=== PATIENT | female | born 1970 | race Hispanic/Latino ===

== ENCOUNTER 2017-10-25 11:10 | Outpatient (CLI) | payer BC ==
--- NOTE | 2017-10-25 14:47 | Ultrasound Report ---
ULTRASOUND PELVIC COMPLETE ULTRASOUND TRANSVAGINAL HISTORY: Pelvic pain, perineal pain. COMPARISON: None at this facility. TECHNIQUE: Transabdominal and transvaginal ultrasound with color doppler interrogation. FINDINGS: Uterus: The uterus is anteverted. The uterus measures 7.3 x 3.1 x 5.2 cm. 4 relatively small uterine fibroids are identified. A 1.7 cm intramural fibroid is identified in the anterior wall. A 2.1 cm fibroid is identified in the uterine fundus which may have a small submucosal component. A 2.4 cm exophytic fibroid is identified from the uterine fundus. A 1.3 cm exophytic fibroid is identified from the posterior wall. The cervix is unremarkable. Endometrium: 5 mm. No mass or fluid collection. Right ovary: 5.4 x 2.0 x 1.4 cm. 2 or possibly 3 right ovarian cysts are identified with the largest measuring 2.4 cm. Left ovary: 3.7 x 2.3 x 3.0 cm. A 1.7 cm left ovarian cyst is identified. No pelvic fluid or mass is identified. Normal color doppler interrogation. IMPRESSION: Uterine fibroid disease as outlined above. Bilateral ovarian cysts, simple in appearance.
== END 2017-10-25 11:11 | disposition home or self-care (01) ==
LOC: US 11:10
PROVIDERS: ATTEND Obstetrics & Gynecology Gynecology
DX: D25.1 Intramural leiomyoma of uterus (principal); D25.2 Subserosal leiomyoma of uterus; N83.202 Unspecified ovarian cyst, left side; N83.201 Unspecified ovarian cyst, right side
CPT/HCPCS: 76830; 76856

== ENCOUNTER 2020-06-17 13:54 | Observation (INO) | payer BC, OTHER ==
[2020-06-17 15:58] LABS: Basophils # (Auto) 0.1 K/mm3 (0.0-0.1); Basophils % (Auto) 0.9 % (0.0-1.8); Eosinophils % (Auto) 0.1 % (0.0-4.3); Hematocrit 44.4 % (30.3-42.9); Hemoglobin 15.1 gm/dl (10.1-14.3); Lymphocytes # (Auto) 2.4 K/mm3 (1.2-5.4); Lymphocytes % (Auto) 17.6 % (13.4-35.0); Mean Corpuscular HGB Conc 34 % (30-34); Mean Corpuscular Volume 99 fl (79-97); Monocytes # (Auto) 0.9 K/mm3 (0.0-0.8); Monocytes % (Auto) 6.7 % (0.0-7.3); Platelet Count 364 K/mm3 (140-440); Red Blood Count 4.51 M/mm3 (3.65-5.03); Red Cell Distribution Width 13.9 % (13.2-15.2)
[2020-06-17 16:14] LABS: Alanine Aminotransferase 15 units/L (7-56); BUN/Creatinine Ratio 8; Blood Urea Nitrogen 6 mg/dL (7-17); Calcium 9.5 mg/dL (8.4-10.2); Hemolysis Index 9
--- NOTE | 2020-06-17 16:31 | XRay Report ---
CHEST 2 VIEWS INDICATION / CLINICAL INFORMATION: Chest Pain. COMPARISON: None available. FINDINGS: SUPPORT DEVICES: None. HEART / MEDIASTINUM: No significant abnormality. LUNGS / PLEURA: No significant pulmonary or pleural abnormality. No pneumothorax. ADDITIONAL FINDINGS: No significant additional findings. IMPRESSION: 1. No acute findings. Signer Name: Jonathan King MD Signed: 06/17/2020 4:26 PM Workstation Name: [id number]
[2020-06-17] MEDS ORDERED: KETOROLAC 30 MG/1 ML INJ IM ONE (21:10)
[2020-06-17] MEDS ORDERED: dexAMETHasone 20 MG/5 ML VIAL IM ONE (21:10)
--- NOTE | 2020-06-17 23:17 | Emergency Department Report ---
ED Chest Pain HPI - General Chief Complaint: Chest Pain Stated Complaint: CHEST PAIN Source: patient Mode of arrival: Ambulatory Limitations: No Limitations - History of Present Illness Initial Comments: Patient is a 50-year-old white female with a history of chronic psoriatic ar thritis and psoriasis, and heavy tobacco smoker who presents to the ED with complaint of acute onset persistent left-sided chest pain that radiates diffusely and to the right arm for the last 2 weeks. Patient describes the pain as pressure-like but gets worse with any cough or exertion. Patient also complains of persistent intermittent dry cough and shortness of breath for the last 1 week which appeared to worsen her chest pain. Patient was referred to the ED by her primary care physician for further evaluation and possible admission for chest pain work-up. Patient denies diaphoresis, nausea, vomiting, diarrhea, abdominal pain, headache, dizziness, syncope, change in vision, back pain, heavy lifting, fall, traumatic injury, fever and chills. MD Complaint: chest pain (Left-sided chest pain that radiates diffusely and to the right arm), other (Right arm pain, shortness of breath) -: Gradual, week(s) (2) Onset: during rest, awoke with symptoms Pain Location: left chest, right chest Pain Radiation: RUE Severity: severe Severity scale (0 -10): 6 Quality: aching, sharp Consistency: constant Improves With: nothing Worsens With: exertion, movement re: dyspnea. denies: nausea, vomting, diaphoresis, sense of impending doom Other Symptoms: denies: cough, fever, syncope, rash, acid taste in mouth, leg swelling, burping Treatments Prior to Arrival: none - Related Data On Oral Contraceptives: No Allergies Allergy/AdvReac Type Severity Reaction Status Date / Time No Known Allergies Allergy Unverified 10/14/15 13:51 Heart Score - HEART Score History: Slightly suspicious EKG: Normal Age: 45-65 Risk factors: 1-2 risk factors Troponin: < normal limit HEART Score: 2 - Critical Actions Critical Actions: 0-3 pts:0.9-1.7%risk of adverse cardiac event.Candidate for discharge ED Review of Systems ROS: Stated complaint: CHEST PAIN Other details as noted in HPI Constitutional: denies: chills, fever Eyes: denies: eye pain, eye discharge, vision change ENT: denies: ear pain, throat pain Respiratory: cough, shortness of breath. denies: wheezing Cardiovascular: chest pain. denies: palpitations Endocrine: no symptoms reported Gastrointestinal: denies: abdominal pain, nausea, vomiting, diarrhea Genitourinary: denies: urgency, dysuria, discharge Musculoskeletal: denies: back pain, joint swelling, arthralgia Skin: denies: rash, lesions Neurological: denies: headache, weakness, paresthesias Psychiatric: denies: anxiety, depression Hematological/Lymphatic: denies: easy bleeding, easy bruising ED Past Medical Hx - Past Medical History Previous Medical History?: Yes Additional medical history: Psoriatic arthritis. psoriasis ED Physical Exam - General Limitations: No Limitations General appearance: alert, in no apparent distress - Head Head exam: Present: atraumatic, normocephalic, normal inspection - Eye Eye exam: Present: normal appearance, PERRL, EOMI Pupils: Present: normal accommodation - ENT ENT exam: Present: normal exam, normal orophraynx, mucous membranes moist, TM's normal bilaterally, normal external ear exam - Neck Neck exam: Present: normal inspection, full ROM - Respiratory Respiratory exam: Present: normal lung sounds bilaterally, chest wall tenderness (Palpable reproducible diffuse chest wall tenderness). Absent: respiratory distress, wheezes, rales, rhonchi, accessory muscle use, decreased breath sounds - Cardiovascular Cardiovascular Exam: Present: normal rhythm, tachycardia, normal heart sounds. Absent: systolic murmur, diastolic murmur, rubs, gallop - GI/Abdominal GI/Abdominal exam: Present: soft, normal bowel sounds. Absent: tenderness, guarding, rebound, hyperactive bowel sounds, hypoactive bowel sounds, organomegaly - Extremities Exam Extremities exam: Present: normal inspection, full ROM, normal capillary refill - Back Exam Back exam: Present: normal inspection, full ROM. Absent: tenderness, CVA tenderness (R), CVA tenderness (L), muscle spasm, paraspinal tenderness, vertebral tenderness - Neurological Exam Neurological exam: Present: alert, oriented X3, CN II-XII intact, normal gait, reflexes normal - Psychiatric Psychiatric exam: Present: normal affect, normal mood - Skin Skin exam: Present: warm, dry, intact, normal color. Absent: rash ED Course Vital Signs 06/17/20 13:58 Temperature 98.4 F Pulse Rate 100 H Respiratory 20 Rate O2 Sat by Pulse 98 Oximetry STEVE score - Steve Score Age > 65: (0) No Aspirin use within the Past 7 Days: (0) No 3 or more CAD Risk Factors: (0) No 2 or more Angina events in past 24 hrs: (0) No Known CAD with more than 50% Stenosis: (0) No Elevated Cardiac Markers: (0) No ST Deviation Greater than 0.5mm: (0) No STEVE Score: 0 ED Medical Decision Making - Lab Data Result diagrams: 06/17/20 15:36 06/17/20 15:36 - EKG Data EKG shows normal: sinus rhythm Rate: normal - EKG Data Interpretation: normal EKG 06/17/20 23:18 The EKG shows normal sinus rhythm with a ventricular rate of [address] or T wave abnormalities. - Radiology Data Radiology results: report reviewed, image reviewed Findings [facility] [address] [place] [address] XRay Report Signed Patient: HOSEA CURRY R#: [id number] : 1970 Acct:[id number] Age/Sex: 50 / F ADM Date: 06/17/20 Loc: ED Attending Dr: Ordering Physician: RONALDO PRITCHETT Date of Service: 06/17/20 Procedure(s): XR chest routine 2V Accession Number(s): [id number] cc: RONALDO PRITCHETT Fluoro Time In Minutes: CHEST 2 VIEWS INDICATION / CLINICAL INFORMATION: Chest Pain. COMPARISON: None available. FINDINGS: SUPPORT DEVICES: None. HEART / MEDIASTINUM: No significant abnormality. LUNGS / PLEURA: No significant pulmonary or pleural abnormality. No pneumothorax. ADDITIONAL FINDINGS: No significant additional findings. IMPRESSION: 1. No acute findings. Signer Name: Jonathan Lovell MD Signed: 06/17/2020 4:26 PM Workstation Name: [id number] Transcribed By: CH Dictated By: JONATHAN LOVELL Electronically Authenticated By: JONATHAN LOVELL Signed Date/Time: 06/17/201625 DD/ 25 TD/TT: - Medical Decision Making This is a 50-year-old white female with a history of chronic psoriatic arthritis and psoriasis, and heavy tobacco smoker who presents to the ED with complaint of acute onset persistent left-sided chest pain that radiates diffusely and to the right arm for the last 2 weeks. Patient describes the pain as pressure-like but gets worse with any cough or exertion. Patient also complains of persistent intermittent dry cough and shortness of breath for the last 1 week which appeared to worsen her chest pain. Patient was referred to the ED by her primary care physician for further evaluation and possible admission for chest pain work-up. In the ED, patient is alert and oriented x3 and is not in distress with normal vital signs. EKG shows normal sinus rhythm with a ventricular rate of [address] or T wave abnormalities. Chest x-ray shows no acute cardiopulmonary abnormalities or pneumonitis. Patient was treated for pain in the ED and lab test results were reviewed and are all nonactionable including initial and repeat troponin levels. Patient's case was also discussed with the patient primary care physician Dr. Meza who suggested that he would like the patient admitted for observation and chest pain rule out. Therefore discussed the patient's case with the hospitalist physician on-call who admitted the patient to the hospital for chest pain work-up and rule out. - Differential Diagnosis ACS; pneumonia; COVID-19; COPD; anxiety; PE Critical care attestation.: If time is entered above; I have spent that time in minutes in the direct care of this critically ill patient, excluding procedure time. ED Disposition Clinical Impression: Atypical chest pain, Shortness of breath Disposition: 09 OP ADMIT IP TO THIS HOSP Is pt being admited?: Yes Does the pt Need Aspirin: Yes Condition: Stable Instructions: Chest Pain (ED) Referrals: EVELYNE MEZA MD [Primary Care Provider] - 3-5 Days Time of Disposition: 23:22 Print Language: ERITREAN
[2020-06-17] MEDS ORDERED: ASPIRIN 81 MG TAB CHEW PO ONE (23:22)
[2020-06-18 01:22] LABS: C-Reactive Protein 0.2 mg/dL (0.00-1.30)
[2020-06-18] MEDS ORDERED: ONDANSETRON 4 MG/2 ML INJ IV PRN (01:53)
[2020-06-18] MEDS ORDERED: NITROGLYCERIN 0.4 MG TAB SUBL SL PRN (01:53)
[2020-06-18] MEDS ORDERED: MORPHINE 2 MG/1 ML INJ IV PRN (01:53)
[2020-06-18] MEDS ORDERED: MAGNESIUM HYDROXIDE (MOM) ORAL LIQD UDC PO PRN (01:53)
[2020-06-18] MEDS ORDERED: ACETAMINOPHEN 325 MG TAB PO PRN ×2 (01:53)
--- NOTE | 2020-06-18 02:09 | History and Physical Report ---
History of Present Illness Date of examination: 06/17/20 Date of admission: 06/17/20 23:28 Chief complaint: Chest Pain History of present illness: 50-year-old female with known history of chronic psoriatic arthritis and psoriasis presenting in the emergency room today complaining of chest pain. Chest pain is said to be left-sided and radiates diffusely across the chest and also towards the right upper extremity. This has been ongoing for about 2 weeks and patient described pain as being pressure-like in nature. [facility] referred patient to the emergency room for further evaluation and management. Patient denies any cough, no fever or chills, no nausea vomiting, no headache or dizziness, no hematuria or dysuria. She denies any sick contacts and no recent travel, denies any contact with anyone with COVID-19. Patient is a heavy tobacco smoker. Work-up in the emergency room today did not reveal any significant abnormality. Patient is being admitted for chest pain work-up. Past History Past Medical History: other (Psoriatric arthritis) Past Surgical History: No surgical history Social history: smoking (1 Pack per day.) Family history: no significant family history Medications and Allergies Allergies Allergy/AdvReac Type Severity Reaction Status Date / Time No Known Allergies Allergy Verified 06/18/20 02:02 Active Meds: Active Medications Acetaminophen (Tylenol) 650 mg PO Q4H PRN PRN Reason: Pain MILD(1-3)/Fever >100.5/DOMINGUEZ Aspirin (Ecotrin) 325 mg PO QDAY JAIRO Magnesium Hydroxide (Milk Of Magnesia) 30 ml PO Q4H PRN PRN Reason: Constipation Morphine Sulfate (Morphine) 2 mg IV Q5MIN PRN PRN Reason: Chest Pain unrelieved by NTG Nitroglycerin (Nitrostat) 0.4 mg SL Q5M PRN PRN Reason: Chest Pain Ondansetron HCl (Zofran) 4 mg IV Q8H PRN PRN Reason: Nausea And Vomiting Sodium Chloride (Sodium Chloride Flush Syringe 10 Ml) 10 ml IV BID JAIRO Sodium Chloride (Sodium Chloride Flush Syringe 10 Ml) 10 ml IV PRN PRN PRN Reason: LINE FLUSH Review of Systems Constitutional: no fever, no chills Ears, nose, mouth and throat: no nasal congestion, no sore throat Cardiovascular: chest pain, no palpitations Respiratory: no cough, no shortness of breath Gastrointestinal: no abdominal pain, no nausea, no vomiting, no diarrhea Genitourinary Female: no pelvic pain, no flank pain, no dysuria, no hematuria Musculoskeletal: no neck pain, no low back pain Integumentary: no rash, no pruritis Neurological: no headaches, no confusion Psychiatric: no anxiety, no depression Exam - Constitutional Vitals: Temp Pulse Resp BP Pulse Ox 98.4 F 100 H 20 98 06/17/20 13:58 06/17/20 13:58 06/17/20 13:58 06/17/20 13:58 General appearance: Present: no acute distress, well-nourished - EENT Eyes: Present: PERRL, EOM intact. Absent: scleral icterus ENT: hearing intact, clear oral mucosa, dentition normal - Neck Neck: Present: supple, normal ROM - Respiratory Respiratory effort: normal - Cardiovascular Rhythm: regular Heart Sounds: Present: S1 & S2. Absent: gallop, systolic murmur, diastolic murmur, rub - Extremities Extremities: no ischemia, pulses intact, pulses symmetrical, No edema, Full ROM Peripheral Pulses: within normal limits - Abdominal General gastrointestinal: Present: soft, non-tender, non-distended, normal bowel sounds. Absent: mass - Integumentary Integumentary: Present: clear, warm, dry. Absent: rash - Musculoskeletal Musculoskeletal: strength equal bilaterally - Psychiatric Psychiatric: appropriate mood/affect, intact judgment & insight, memory intact, cooperative - Neurologic Neurologic: CNII-XII intact, no focal deficits, moves all extremities HEART Score - HEART Score History: Moderately suspicious EKG: Normal Age: 45-65 Risk factors: 1-2 risk factors Troponin: Troponin T < 0.010 ng/mL (0.00-0.029) 06/17/20 21:23 Troponin: < normal limit HEART Score: 3 - Critical Actions Critical Actions: 0-3 pts:0.9-1.7%risk of adverse cardiac event.Candidate for discharge Results - Labs CBC & Chem 7: 06/17/20 15:36 06/18/20 00:34 Labs: Abnormal lab results 06/17/20 06/17/20 06/18/20 Range/Units 15:36 15:36 00:34 WBC 13.6 H (4.5-11.0) K/mm3 Hgb 15.1 H (10.1-14.3) gm/dl Hct 44.4 H (30.3-42.9) % MCV 99 H (79-97) fl MCH 34 H (28-32) pg [place] # (Auto) 0.9 H (0.0-0.8) K/mm3 Seg Neutrophils % 74.7 H (40.0-70.0) % Seg Neutrophils # 10.1 H (1.8-7.7) K/mm3 BUN 6 L (7-17) mg/dL Glucose 101 H 118 H (65-100) mg/dL Assessment and Plan - Patient Problems (1) Atypical chest pain Current Visit: Yes Status: Acute Plan to address problem: Patient admitted and placed on telemetry. Will check serial cardiac enzymes. We will request cardiology evaluation. (2) Tobacco abuse Current Visit: Yes Status: Acute Plan to address problem: Counseled on quitting tobacco use. We will offer nicotine patch as needed. (3) DVT prophylaxis Current Visit: Yes Status: Acute Plan to address problem: Patient placed on anticoagulation with subcutaneous heparin. (4) Full code status Current Visit: Yes Status: Acute
[2020-06-18 08:46] LABS: Basophils % (Auto) 0.3 % (0.0-1.8); Hematocrit 41.5 % (30.3-42.9); Hemoglobin 14.3 gm/dl (10.1-14.3); Lymphocytes # (Auto) 0.7 K/mm3 (1.2-5.4); Lymphocytes % (Auto) 12.8 % (13.4-35.0); Mean Corpuscular HGB Conc 35 % (30-34); Mean Corpuscular Volume 100 fl (79-97); Monocytes # (Auto) 0.1 K/mm3 (0.0-0.8); Platelet Count 319 K/mm3 (140-440); Red Blood Count 4.17 M/mm3 (3.65-5.03); Red Cell Distribution Width 13.7 % (13.2-15.2)
[2020-06-18 09:12] LABS: Chol/HDL Ratio 2.41 %
--- NOTE | 2020-06-18 11:14 | Consultation ---
History of Present Illness Consult date: 06/18/20 Requesting physician: NKECHI MONTALVO Consult reason: chest pain History of present illness: The pt is a 50-year-old female with a past medical history of COPD and tobacco use. She is previously unknown to our practice. She presented with c/o chest pain for approx 2 weeks prior to arrival. Pt describes her chest pain as a left- sided pressure which radiates into her right arm. Pt was initially evaluated by her PCP and was referred to ED for further evaluation/management. She is currently COVID-19 PUI with COVID testing pending. Past History Past Medical History: other (as per HPI) Past Surgical History: No surgical history Social history: smoking (1 Pack per day.) Family history: no significant family history Medications and Allergies Allergies Allergy/AdvReac Type Severity Reaction Status Date / Time No Known Allergies Allergy Verified 06/18/20 02:02 Active Meds: Active Medications Acetaminophen (Tylenol) 650 mg PO Q4H PRN PRN Reason: Pain MILD(1-3)/Fever >100.5/DOMINGUEZ Aspirin (Ecotrin) 325 mg PO QDAY [facility] Magnesium Hydroxide (Milk Of Magnesia) 30 ml PO Q4H PRN PRN Reason: Constipation Morphine Sulfate (Morphine) 2 mg IV Q5MIN PRN PRN Reason: Chest Pain unrelieved by NTG Nitroglycerin (Nitrostat) 0.4 mg SL Q5M PRN PRN Reason: Chest Pain Ondansetron HCl (Zofran) 4 mg IV Q8H PRN PRN Reason: Nausea And Vomiting Sodium Chloride (Sodium Chloride Flush Syringe 10 Ml) 10 ml IV BID [facility] Last Admin: 06/18/20 10:25 Dose: 10 ml Documented by: Sodium Chloride (Sodium Chloride Flush Syringe 10 Ml) 10 ml IV PRN PRN PRN Reason: LINE FLUSH Review of Systems Constitutional: no weight loss, no weight gain, no fever, no chills, no sweats Ears, nose, mouth and throat: no ear pain, no nose pain, no sinus pressure, no sinus pain Cardiovascular: chest pain, shortness of breath, dyspnea on exertion, no orthopnea, no palpitations, no rapid/irregular heart beat, no edema, no syncope, no lightheadedness Respiratory: shortness of breath, dyspnea on exertion, no cough, no congestion, no wheezing, no pain on inspiration Gastrointestinal: no abdominal pain, no nausea, no vomiting, no diarrhea, no constipation, no change in bowel habits Genitourinary Female: no pelvic pain, no flank pain, no dysuria, no urinary frequency, no urgency Musculoskeletal: no neck stiffness, no neck pain, no shooting arm pain, no arm numbness/tingling, no low back pain, no shooting leg pain Integumentary: no rash, no pruritis, no redness, no sores, no wounds Neurological: no head injury, no paralysis, no weakness, no parathesias, no numbness, no tingling, no seizures, no syncope Psychiatric: no anxiety Endocrine: no cold intolerance, no heat intolerance Hematologic/Lymphatic: no easy bruising Allergic/Immunologic: no urticaria Physical Examination Vital Signs Temp Pulse Resp Pulse Ox 98.4 F 100 H 20 98 06/17/20 13:58 06/17/20 13:58 06/17/20 13:58 06/17/20 13:58 General appearance: no acute distress HEENT: Positive: PERRL, Normocephaly, Mucus Membranes Moist Neck: Positive: neck supple, trachea midline Cardiac: Positive: Reg Rate and Rhythm, S1/S2 Lungs: Positive: Decreased Breath Sounds Neuro: Positive: Grossly Intact Abdomen: Negative: Tender Skin: Negative: Rash Musculoskeletal: No Pain Extremities: Absent: edema Results 06/18/20 07:51 06/18/20 00:34 Cardiac Enzymes 06/17/20 06/18/20 Range/Units 15:36 00:34 AST 17 (5-40) units/L Lactate Dehydrogenase 132 (91-180) units/L Lipids 06/18/20 Range/Units 07:51 Triglycerides 40 (2-149) mg/dL Cholesterol 181 (50-199) mg/dL HDL Cholesterol 75 H (40-59) mg/dL Cholesterol/HDL Ratio 2.41 % CBC 06/17/20 06/18/20 Range/Units 15:36 07:51 WBC 13.6 H 5.1 (4.5-11.0) K/mm3 RBC 4.51 4.17 (3.65-5.03) M/mm3 Hgb 15.1 H 14.3 (10.1-14.3) gm/dl Hct 44.4 H 41.5 (30.3-42.9) % Plt Count 364 319 (140-440) K/mm3 Lymph # (Auto) 2.4 0.7 L (1.2-5.4) K/mm3 [place] # (Auto) 0.9 H 0.1 (0.0-0.8) K/mm3 Eos # (Auto) 0.0 0.0 (0.0-0.4) K/mm3 Baso # (Auto) 0.1 0.0 (0.0-0.1) K/mm3 Comprehensive Metabolic Panel 06/17/20 06/18/20 Range/Units 15:36 00:34 Sodium 138 (137-145) mmol/L Potassium 4.1 (3.6-5.0) mmol/L Chloride 103.2 (98-107) mmol/L Carbon Dioxide 26 (22-30) mmol/L BUN 6 L (7-17) mg/dL Creatinine 0.8 (0.6-1.2) mg/dL Glucose 101 H 118 H (65-100) mg/dL Calcium 9.5 (8.4-10.2) mg/dL AST 17 (5-40) units/L ALT 15 (7-56) units/L Alkaline Phosphatase 75 (35-129) units/L Total Protein 7.4 (6.3-8.2) g/dL Albumin 4.0 (3.9-5) g/dL - Imaging and Cardiology Echo: pending EKG: report reviewed, image reviewed EKG interpretations - Telemetry EKG Rhythm: Sinus Rhythm - EKG Sinus rhythms and dysrhythmias: sinus rhythm Assessment and Plan AMI r/o. Pending pt is COVID negative, obtain tte and plan for lexiscan MPI stress test in AM. NPO after MN. The patient has been seen in conjunction with Dr. Brumfield who agrees with the assessment and plan of care. - Patient Problems (1) Chest pain Current Visit: Yes Status: Acute (2) Person under investigation for COVID-19 Current Visit: Yes Status: Acute (3) COPD (chronic obstructive pulmonary disease) Current Visit: Yes Status: Suspected (4) Tobacco abuse Current Visit: Yes Status: Chronic
[2020-06-19 06:27] LABS: Basophils # (Auto) 0.1 K/mm3 (0.0-0.1); Basophils % (Auto) 0.5 % (0.0-1.8); Eosinophils % (Auto) 0.2 % (0.0-4.3); Hematocrit 39.2 % (30.3-42.9); Hemoglobin 13.2 gm/dl (10.1-14.3); Lymphocytes # (Auto) 3.7 K/mm3 (1.2-5.4); Lymphocytes % (Auto) 31.3 % (13.4-35.0); Mean Corpuscular HGB Conc 34 % (30-34); Mean Corpuscular Volume 100 fl (79-97); Monocytes % (Auto) 8.8 % (0.0-7.3); Platelet Count 326 K/mm3 (140-440); Red Blood Count 3.94 M/mm3 (3.65-5.03); Red Cell Distribution Width 14.1 % (13.2-15.2)
[2020-06-19 06:36] LABS: INR 1.01 (0.87-1.13)
[2020-06-19 06:55] LABS: Calcium 9.1 mg/dL (8.4-10.2)
[2020-06-19] MEDS ORDERED: REGADENOSON 0.4 MG/5 ML INJ IV ONE (08:38)
[2020-06-19] MEDS ORDERED: ASPIRIN EC 325 MG TAB PO SCH (10:00)
--- NOTE | 2020-06-19 11:14 | Progress Note ---
Assessment and Plan COVID-19 testing is negative. AMI r/o. S/p lexiscan MPI stress test today which was negative. Currently stable cardiac status. Chest pain resolved. Pt may discharge from cardiology standpoint. Recommend pt follow up in our office with Dr. Brumfield within 2 weeks ([phone]). The patient has been seen in conjunction with Dr. Brumfield who agrees with the assessment and plan of care. - Patient Problems (1) Chest pain Current Visit: Yes Status: Resolved (2) COPD (chronic obstructive pulmonary disease) Current Visit: Yes Status: Suspected (3) Tobacco abuse Current Visit: Yes Status: Chronic Subjective Date of service: 06/19/20 Principal diagnosis: cp Interval history: pt for stress test today, no current cardiac complaints. tele reviewed - in SB HR 50s. Objective Last Vital Signs Temp 98.1 F 06/19/20 03:40 Pulse 58 L 06/19/20 03:40 Resp 18 06/19/20 08:53 BP 107/60 06/19/20 08:51 Pulse Ox 99 06/19/20 03:40 - Physical Examination General: No Apparent Distress HEENT: Positive: PERRL, Normocephaly, Mucus Membranes Moist Neck: Positive: neck supple, trachea midline Cardiac: Positive: Regular Rhythm, S1/S2 Lungs: Positive: Decreased Breath Sounds Neuro: Positive: Grossly Intact Abdomen: Negative: Tender Skin: Negative: Rash Musculoskeletal: No Pain Extremities: Absent: edema - Labs and Meds Coagulation 06/19/20 Range/Units 06:04 PT 13.2 (12.2-14.9) Sec. INR 1.01 (0.87-1.13) CBC 06/19/20 Range/Units 06:04 WBC 11.7 H (4.5-11.0) K/mm3 RBC 3.94 (3.65-5.03) M/mm3 Hgb 13.2 (10.1-14.3) gm/dl Hct 39.2 (30.3-42.9) % Plt Count 326 (140-440) K/mm3 Lymph # (Auto) 3.7 (1.2-5.4) K/mm3 [place] # (Auto) 1.0 H (0.0-0.8) K/mm3 Eos # (Auto) 0.0 (0.0-0.4) K/mm3 Baso # (Auto) 0.1 (0.0-0.1) K/mm3 Comprehensive Metabolic Panel 06/19/20 Range/Units 06:04 Sodium 142 (137-145) mmol/L Potassium 3.9 (3.6-5.0) mmol/L Chloride 107.2 H (98-107) mmol/L Carbon Dioxide 25 (22-30) mmol/L BUN 11 (7-17) mg/dL Creatinine 1.0 (0.6-1.2) mg/dL Glucose 94 (65-100) mg/dL Calcium 9.1 (8.4-10.2) mg/dL - Imaging and Cardiology EKG: report reviewed, image reviewed Echo: report reviewed - Telemetry EKG Rhythm: Sinus Rhythm - EKG Sinus rhythms and dysrhythmias: sinus rhythm
--- NOTE | 2020-06-19 13:03 | Discharge Summary ---
Providers - Providers Date of Admission: 06/17/20 23:28 Attending physician: ARTEMIO TALBOT 06/18/20 Consult to Cardiac Rehabilitation [CONS] Routine Reason For Exam: Phase I 06/18/20 01:54 Consult to Cardiology [CONS] Routine Consulting Provider: JENNIFER SAENZ Reason For Exam: chest pain Primary care physician: EVELYNE MEZA Hospitalization Condition: Stable Exam - Constitutional Vitals: Temp Pulse Resp BP Pulse Ox 98.1 F 58 L 18 107/60 99 06/19/20 03:40 06/19/20 03:40 06/19/20 08:53 06/19/20 08:51 06/19/20 03:40 Plan Follow up with: EVELYNE MEZA MD [Primary Care Provider] - 3-5 Days
[2020-06-19 13:43] VITALS: BP 111/66
--- NOTE | 2020-06-19 13:45 | Treadmill Report ---
PHARMACOLOGIC MYOCARDIAL PERFUSION IMAGING REPORT The patient is a 50-year-old female who was admitted with complaints of chest pain and coughing of 2 weeks' duration. Presently, she continues to have chest pain. The patient tells me she had a stress test done 8 years ago, which was unremarkable. Presently myocardial perfusion imaging is being performed for evaluation of atypical chest pains of few weeks' duration. Baseline EKG showed sinus rhythm, within normal limits. The patient received IV regadenoson 0.4 mg by injection. Tolerated it well. EKG showed sinus rhythm within normal limits. No changes in the EKG with vasodilation. The patient had resting myocardial perfusion images using technetium 99m sestamibi agent. Subsequently, post-vasodilation the patient underwent nuclear imaging using the same agent, namely technetium 99m sestamibi with gated study being performed for evaluation of LV function post-vasodilation. Following findings were noted. The patient denied chest pain. EKG showed sinus rhythm within normal limits and no changes with vasodilation. The patient did not have any chest pain with vasodilation. Nuclear imaging showed normal perfusion post-vasodilation and also during rest. Gated studies showed ejection fraction to be 68% by calculation. End-diastolic and systolic blood volumes are normal. Transient ischemic dilation ratio was 1.01, which is normal. FINAL IMPRESSION: 1. The patient tolerated IV regadenoson well. 2. No EKG changes to suggest ischemia. 3. Normal myocardial perfusion imaging noted with normal left ventricular ejection fraction of 68% with normal wall motion and thickening. This is prognostically a low-risk study. [facility]# [id number] NINI/MATHEW
== END 2020-06-19 02:40 | disposition home or self-care (01) ==
LOC: ED 13:54 → 3A 23:28
PROVIDERS: ADMIT Internal Medicine Geriatric Medicine; ATTEND Internal Medicine
DX: R07.89 Other chest pain (principal); Z20.828 Contact with and (suspected) exposure to other viral communicable diseases; J44.9 Chronic obstructive pulmonary disease, unspecified; L40.50 Arthropathic psoriasis, unspecified; F17.200 Nicotine dependence, unspecified, uncomplicated; Z79.899 Other long term (current) drug therapy
CPT/HCPCS: 36415; 71046; 78452; 80048; 80053; 80061; 82728; 82947; 83615; 84145; 84484; 84703; 85025; 85379; 85610; 86140; 93005; 93017; 93306; 96372; 99285; A9502; G0378; J1100; J1885; J2785; U0003